=== PATIENT | female | born 1940 | race Caucasian/White ===

== ENCOUNTER → 2018-04-03 | Outpatient (CLI) | payer MEDICARE, BC | END | disposition home or self-care (01) | LOC: CFH 09:27 | PROVIDERS: ATTEND Nurse Practitioner Family | DX: M85.88 Other specified disorders of bone density and structure, other site (principal); M81.0 Age-related osteoporosis without current pathological fracture; R91.8 Other nonspecific abnormal finding of lung field; N95.9 Unspecified menopausal and perimenopausal disorder | CPT/HCPCS: 71250; 77080 ==

== ENCOUNTER 2019-08-09 14:50 | Outpatient (CLI) | payer MEDICARE, BC | END 2019-08-09 23:59 | disposition home or self-care (01) | LOC: CVU 14:50 | PROVIDERS: ATTEND Internal Medicine Cardiovascular Disease | DX: I87.2 Venous insufficiency (chronic) (peripheral) (principal) | CPT/HCPCS: 93970 ==

== ENCOUNTER 2019-08-13 06:56 | Outpatient (CLI) | payer MEDICARE, BC ==
[2019-08-13] MEDS ORDERED: REGADENOSON 0.4 MG/5 ML SYRINGE ONE (07:09)
== END 2019-08-13 23:59 | disposition home or self-care (01) ==
LOC: CFH 06:56
PROVIDERS: ATTEND Internal Medicine Cardiovascular Disease
DX: I08.1 Rheumatic disorders of both mitral and tricuspid valves (principal); R06.02 Shortness of breath; R42 Dizziness and giddiness
CPT/HCPCS: 78452; 93017; 93306; A9502; J2785